=== PATIENT | female | born 1975 | race Caucasian/White ===

== ENCOUNTER → 2022-12-10 | Outpatient (CLI) | payer OTHER ==
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
== END | disposition home or self-care (01) ==
LOC: RADBDWWP 10:27
PROVIDERS: ATTEND Internal Medicine Rheumatology
DX: Z13.820 Encounter for screening for osteoporosis (principal)
CPT/HCPCS: 77080

== ENCOUNTER → 2023-06-11 | Outpatient (CLI) | payer OTHER ==
--- NOTE | 2023-06-11 13:31 | CT ---
EXAMINATION TYPE: CT brain wo con DATE OF EXAM: 06/11/2023 COMPARISON: None available. HISTORY: History of migraines. CT DLP: 1149.6 mGycm. Automated Exposure Control for Dose Reduction was Utilized. TECHNIQUE: CT scan of the head is performed without contrast. FINDINGS: There is no acute intracranial hemorrhage, mass effect, or midline shift identified. The ventricles and sulci are within normal limits in size. The globes are intact and the visualized sin uses are clear. IMPRESSION: No acute intracranial hemorrhage, mass effect, or midline shift is seen.
== END | disposition home or self-care (01) ==
LOC: RADCTMAIN 13:00
PROVIDERS: ATTEND Internal Medicine
DX: S09.90XA Unspecified injury of head, initial encounter (principal)
CPT/HCPCS: 70450